=== PATIENT | male | born 1970 | race Caucasian/White ===

== ENCOUNTER 2022-02-12 11:22 | Observation (INO) ==
[2022-02-12] MEDS ORDERED: Iopamidol - 370 500 ML MLS IVP ONE ×2 (11:51→12:04)
[2022-02-12 12:34] LABS: Basophils # 0.1 K/mcL (0.0-0.2); Basophils % 0.7 %; Eosinophils # 0.4 K/mcL (0.0-0.6); Eosinophils % 3.9 %; Hematocrit 42.9 % (37.5-50.1); Hemoglobin 14.3 g/dL (12.9-16.9); Immature Granulocytes % 0.4 % (0-4); Lymphocytes # 2.3 K/mcL (0.6-4.6); Lymphocytes % 25.3 %; Mean Corpuscular HGB Conc 33.3 g/dL (31.6-35.5); Mean Corpuscular Hemoglobin 29.9 pg (28.0-33.3); Mean Corpuscular Volume 89.7 fL (83.0-100.0); Mean Platelet Volume 10.1 fL (9.4-12.4); Monocytes # 0.8 K/mcL (0.0-1.3); Neutrophils # 5.5 K/mcL (1.6-8.9); Platelet Count 271 K/mcL (140-400); Red Blood Count 4.78 M/mcL (4.19-5.50); Red Cell Distribution Width 13.2 % (11.5-14.5); Segmented Neutrophils % 60.7 %; White Blood Count 9.1 K/mcL (4.3-11.1)
[2022-02-12 12:40] LABS: Prothrombin Time 10.6 Seconds (9.4-12.1)
[2022-02-12 12:42] LABS: Activated Partial Thrombo Time 33.4 Seconds (26.0-36.0)
[2022-02-12 13:31] LABS: BUN/Creatinine Ratio 15 (6-26); Blood Urea Nitrogen 13 mg/dL (6-20); Calcium 9.7 mg/dL (8.6-10.3); Carbon Dioxide 24 mEq/L (23-29); Glucose 130 mg/dL (70-105); Troponin I < 0.03 ng/mL (< 0.04)
[2022-02-12 13:36] LABS: Chloride 106 mEq/L (98-107); Osmolality,Calculated 286 (280-300); Potassium 4.1 mEq/L (3.5-5.1); Sodium 137 mEq/L (136-145)
[2022-02-12] MEDS ORDERED: Naloxone 0.4 MG/ML INJ IVP PRN (14:43)
[2022-02-12] MEDS: Aspirin 81 MG TAB.CHEW PO SCH (17:40)
[2022-02-12] MEDS ORDERED: Metoprolol XL (24 HR) Succ 25 MG TAB.ER.24H PO SCH (21:00)
[2022-02-12] MEDS: *HR* Buprenorphine HCl 8 MG TAB.SUBL SL SCH (22:31)
[2022-02-12] MEDS: *HR* Heparin 5,000 UNIT/ML VIAL SQ SCH (22:31)
[2022-02-12] MEDS: OLANZapine 10 MG TAB.RAPDIS PO SCH (22:33)
[2022-02-12] MEDS ORDERED: Ondansetron 4 MG/2 ML VIAL IVP ONE (22:41)
[2022-02-13 02:37] LABS: Basophils # 0.1 K/mcL (0.0-0.2); Basophils % 0.8 %; Eosinophils # 0.5 K/mcL (0.0-0.6); Eosinophils % 5.6 %; Hematocrit 40.5 % (37.5-50.1); Hemoglobin 13.5 g/dL (12.9-16.9); Immature Granulocytes % 0.4 % (0-4); Lymphocytes # 3.2 K/mcL (0.6-4.6); Lymphocytes % 35.6 %; Mean Corpuscular HGB Conc 33.3 g/dL (31.6-35.5); Mean Corpuscular Hemoglobin 30.2 pg (28.0-33.3); Mean Corpuscular Volume 90.6 fL (83.0-100.0); Mean Platelet Volume 9.9 fL (9.4-12.4); Monocytes # 0.8 K/mcL (0.0-1.3); Monocytes % 9.2 %; Neutrophils # 4.4 K/mcL (1.6-8.9); Platelet Count 261 K/mcL (140-400); Red Blood Count 4.47 M/mcL (4.19-5.50); Red Cell Distribution Width 13.7 % (11.5-14.5); Segmented Neutrophils % 48.4 %
[2022-02-13 02:59] LABS: BUN/Creatinine Ratio 18 (6-26); Blood Urea Nitrogen 17 mg/dL (6-20); Calcium 9.1 mg/dL (8.6-10.3); Carbon Dioxide 24 mEq/L (23-29); Chloride 109 mEq/L (98-107); Glucose 101 mg/dL (70-105); Osmolality,Calculated 292 (280-300); Potassium 4.3 mEq/L (3.5-5.1); Sodium 140 mEq/L (136-145)
[2022-02-13 03:07] LABS: Estimated Average Glucose 126 mg/dl
[2022-02-13] MEDS: *HR* Heparin 5,000 UNIT/ML VIAL SQ SCH ×2 (06:03→14:35)
[2022-02-13] MEDS: *HR* Buprenorphine HCl 8 MG TAB.SUBL SL SCH ×2 (07:56→20:34)
[2022-02-13] MEDS: Aspirin 81 MG TAB.CHEW PO SCH (07:56)
[2022-02-13] MEDS: FLUoxetine HCl 10 MG CAPSULE PO SCH (07:56)
[2022-02-13] MEDS: OLANZapine 10 MG TAB.RAPDIS PO SCH ×2 (07:56→20:34)
[2022-02-13] MEDS ORDERED: Acetaminophen 325 MG TABLET PO PRN (08:54)
[2022-02-13] MEDS ORDERED: amLODIPine 5 MG TABLET PO SCH (09:00)
[2022-02-13] MEDS ORDERED: lisinopriL 20 MG TABLET PO SCH (09:00)
[2022-02-13 22:09] LABS: Amphetamine Screen,Urine Negative ng/mL (Cutoff=1000); Barbiturate Screen,Urine Negative ng/mL (Cutoff=200); Benzodiazepines Screen,Urine Negative ng/mL (Cutoff=200); Cannabinoid Screen,Urine Negative ng/mL (Cutoff = 50); Cocaine Screen,Urine Negative ng/mL (Cutoff= 300); Opiate Screen,Urine Negative ng/mL (Cutoff=300); Phencyclidine Screen,Urine Negative ng/mL (Cutoff=25)
[2022-02-14 07:03] LABS: Chol/HDL Ratio 5.1 (0-4.9); Thyroid Stimulating Hormone 4.434 mcIU/mL (0.340-5.600)
[2022-02-14 07:26] VITALS: PULSE 63
[2022-02-14] MEDS: OLANZapine 10 MG TAB.RAPDIS PO SCH (07:39)
[2022-02-14] MEDS: FLUoxetine HCl 10 MG CAPSULE PO SCH (07:39)
[2022-02-14] MEDS: *HR* Buprenorphine HCl 8 MG TAB.SUBL SL SCH (07:39)
[2022-02-14] MEDS: Aspirin 81 MG TAB.CHEW PO SCH (07:39)
[2022-02-14] MEDS ORDERED: Sennosides/Docusate Sodium TABLET PO ONE (07:54)
[2022-02-14 11:23] VITALS: BP 159/82; TEMP 98.2; O2SAT 94
[2022-02-14] MEDS ORDERED: amLODIPine 5 MG TABLET PO SCH (13:15)
[2022-02-14] MEDS ORDERED: Metoprolol XL (24 HR) Succ 25 MG TAB.ER.24H PO SCH (21:00)
[2022-02-15] MEDS ORDERED: lisinopriL 20 MG TABLET PO SCH (09:00)
== END 2022-02-14 17:49 | disposition home or self-care (01) ==
LOC: 2ANU 11:22 → EMEROOARM 11:22 → SUATTDRO 17:02 → 2ANU 17:33
PROVIDERS: ADMIT Internal Medicine; ATTEND Internal Medicine